=== PATIENT | male | born 1960 | race Caucasian/White ===

== ENCOUNTER 2016-10-24 10:48 | Emergency (ER) | payer SELFPAY ==
[~2016-10-24] VITALS: Ht 182.9 cm; Wt 100.0 kg
[2016-10-24] MEDS ORDERED: DEXAMETHASONE 4 MG/ML, 1ML IM ONE (11:30)
[2016-10-24] MEDS ORDERED: DIPHENHYDRAMINE 50 MG/ML, 1ML IM ONE (11:30)
[2016-10-24] MEDS ORDERED: FAMOTIDINE 20 MG TABLET PO ONE (11:30)
[2016-10-24] MEDS ORDERED: DIPHENHYDRAMINE 50 MG/ML, 1ML ONE (11:48)
[2016-10-24] MEDS ORDERED: DEXAMETHASONE 4 MG/ML, 5ML ONE (11:49)
[2016-10-24] MEDS ORDERED: FAMOTIDINE 20 MG TABLET ONE (11:49)
[2016-10-24] MEDS ORDERED: PLEASE ENTER HEIGHT AND WEIGHT MC SCH (12:00)
[2016-10-24] MEDS ORDERED: PLEASE ENTER ALLERGIES MC SCH ×2 (12:00)
[2016-10-24 16:38] VITALS: BP 138/92
== END 2016-10-24 16:40 | disposition home or self-care (01) ==
LOC: ED 16:20
DX: T78.40XA Allergy, unspecified, initial encounter (principal); L50.0 Allergic urticaria; T43.625A Adverse effect of amphetamines, initial encounter; Y92.89 Other specified places as the place of occurrence of the external cause
CPT/HCPCS: 93005; 96372; 99284; J1100; J1200

== ENCOUNTER 2017-09-28 11:10 | Emergency (ER) | payer MEDICAID ==
[~2017-09-28] VITALS: Ht 185.4 cm; Wt 115.9 kg
[2017-09-28] MEDS ORDERED: LISI-170 PO (11:56)
[2017-09-28] MEDS ORDERED: LIDOCAINE-MPF 1%, 5ML ONE (11:58)
[2017-09-28 12:39] LABS: BASOPHILS # (AUTO) 0.03 x10^3/uL (0-0.1); BASOPHILS % (AUTO) 0 % (0-1); EOSINOPHILS # (AUTO) 0.22 x10^3/uL (0-0.4); EOSINOPHILS % (AUTO) 2 % (1-7); LYMPHOCYTES # (AUTO) 1.16 x10^3/uL (1-3.4); LYMPHOCYTES % (AUTO) 10 % (22-44); MD NO; MEAN CORPUSCULAR HEMOGLOBIN 31.5 pg (27.5-34.5); MEAN CORPUSCULAR HGB CONC 34.4 g/dL (33.2-36.2); MEAN CORPUSCULAR VOLUME 91.7 fL (81-97); MEAN PLATELET VOLUME 7.8 fL (7.4-10.4); MONOCYTES # (AUTO) 1.37 x10^3/uL (0.2-0.8); MONOCYTES % (AUTO) 11 % (2-9); NEUTROPHILS # (AUTO) 9.21 x10^3/uL (1.8-6.8); NEUTROPHILS % (AUTO) 77 % (42-75); PLATELET COUNT 108 x10^3/uL (130-400); RED BLOOD COUNT 5.49 x10^6/uL (4.38-5.82); RED CELL DISTRIBUTION WIDTH 13.9 % (9.4-14.8)
[2017-09-28 12:49] LABS: ALBUMIN 3.3 g/dL (3.4-5.0); ANION GAP 7 mmol/L (5-15); CALCIUM 8.2 mg/dL (8.5-10.1); CHLORIDE 104 mmol/L (98-107); CREATININE 0.91 mg/dL (0.7-1.3)
[2017-09-28] MEDS ORDERED: CEFTRIAXONE 1,000 MG ONE (13:17)
[2017-09-28] MEDS ORDERED: LIDOCAINE-MPF 1%, 2ML ONE (13:17)
[2017-09-28 13:26] VITALS: BP 178/92
[2017-09-28] MEDS ORDERED: CEFTRIAXONE 1,000 MG IM ONE (13:30)
== END 2017-09-28 13:34 | disposition home or self-care (01) ==
LOC: MERGE 11:10 → ED 13:25
DX: L03.113 Cellulitis of right upper limb (principal); I10 Essential (primary) hypertension
CPT/HCPCS: 10060; 36415; 80048; 82040; 85025; 96372; 99284; J0696

== ENCOUNTER 2018-03-01 11:58 | Emergency (ER) | payer MEDICAID ==
[~2018-03-01 11:58] MED LIST: LISI-170 PO
[2018-03-01 12:01] VITALS: BP 159/101
[2018-03-01] MEDS ORDERED: L.E.T SOLUTION TP ONE ×2 (12:23→12:30)
[2018-03-01] MEDS ORDERED: SULFAMETH./TRIMETHOPRIM DS 800MG/160MG TABLET PO ONE (12:30)
[2018-03-01] MEDS ORDERED: CEFAZOLIN 1,000 MG IM ONE (12:30)
[2018-03-01] MEDS ORDERED: SULFAMETH./TRIMETHOPRIM DS 800MG/160MG TABLET ONE (12:33)
[2018-03-01] MEDS ORDERED: CEFAZOLIN 1,000 MG ONE (12:33)
== END 2018-03-01 13:22 | disposition home or self-care (01) ==
LOC: ED 12:30
DX: M79.661 Pain in right lower leg (principal); L03.115 Cellulitis of right lower limb; I10 Essential (primary) hypertension; Z76.0 Encounter for issue of repeat prescription; I73.9 Peripheral vascular disease, unspecified
CPT/HCPCS: 73590; 96372; 99284; J0690

== ENCOUNTER 2018-09-18 19:57 | Emergency (ER) | payer MEDICAID, OTHER ==
[~2018-09-18] VITALS: Ht 182.9 cm; Wt 109.7 kg
[2018-09-18 20:00] VITALS: BP 121/76
[2018-09-18 20:35] LABS: BASOPHILS # (AUTO) 0.03 x10^3/uL (0-0.1); BASOPHILS % (AUTO) 1 % (0-1); EOSINOPHILS # (AUTO) 0.21 x10^3/uL (0-0.4); EOSINOPHILS % (AUTO) 3 % (1-7); LYMPHOCYTES # (AUTO) 1.06 x10^3/uL (1-3.4); LYMPHOCYTES % (AUTO) 17 % (22-44); MD NO; MEAN CORPUSCULAR HEMOGLOBIN 31.9 pg (27.5-34.5); MEAN CORPUSCULAR HGB CONC 34.6 g/dL (33.2-36.2); MEAN CORPUSCULAR VOLUME 92.3 fL (81-97); MONOCYTES # (AUTO) 0.79 x10^3/uL (0.2-0.8); MONOCYTES % (AUTO) 12 % (2-9); NEUTROPHILS # (AUTO) 4.37 x10^3/uL (1.8-6.8); NEUTROPHILS % (AUTO) 68 % (42-75); PLATELET COUNT 143 x10^3/uL (130-400); RED BLOOD COUNT 5.18 x10^6/uL (4.38-5.82); RED CELL DISTRIBUTION WIDTH 13.8 % (9.4-14.8)
[2018-09-18 20:45] LABS: ALANINE AMINOTRANSFERASE 73 U/L (12-78); ALBUMIN 3.7 g/dL (3.4-5.0); ANION GAP 7 mmol/L (5-15); CALCIUM 8.3 mg/dL (8.5-10.1); CHLORIDE 109 mmol/L (98-107); CREATININE 0.96 mg/dL (0.7-1.3)
[2018-09-18 20:47] LABS: ALKALINE PHOSPHATASE 49 U/L (45-117); BILIRUBIN,TOTAL 1.3 mg/dL (0.2-1.0)
[2018-09-18] MEDS ORDERED: BACITRACIN ZINC OINT 500U/GM, 0.9 GM ONE (21:42)
== END 2018-09-18 21:42 | disposition home or self-care (01) ==
LOC: ED 21:36
DX: L03.116 Cellulitis of left lower limb (principal); L03.115 Cellulitis of right lower limb; I10 Essential (primary) hypertension; Z76.0 Encounter for issue of repeat prescription
CPT/HCPCS: 36415; 80053; 85025; 99284

== ENCOUNTER 2019-07-31 01:48 | Inpatient (IN) | payer MEDICAID ==
[~2019-07-31] VITALS: Ht 185.4 cm; Wt 118.9 kg
--- NOTE | 2019-07-31 02:24 | NUR ---
THIS IS A 59 YO MALE COMING IN FOR "I'VE BEEN HAVING CHILLS, FEVERS, I'VE BEEN LIGHTHEADED AND DIZZY, AND TROUBLE BREATHING" X 2 DAYS. PATIENT A&OX4, SPEAKING IN 3-4 WORD SENTENCES, SPO2 ON RA 88%, PLACED ON 4L NC UP TO 96%. EXPIRATORY WHEEZES AUSCULTATED THROUGHOUT, BILATERAL BASE CRACKLES AUSCULTATED. PATIENT STATES MEDICAL HX CONSISTS OF HTN UNCOMPLIANT WITH MEDICATIONS, AND CHF. PATIENT DENIES RECENT TRAVEL, DENIES BEING AROUND ANYONE WITH RECENT TRAVEL OUTSIDE [facility]. ALL MONITORING IN PLACE, SINUS ARRYTHMIA ON PARACHUTE RIGGER, VSS, NAD AT THIS TIME. CALL LIGHT IN REACH, FAMILY IN ROOM
--- NOTE | 2019-07-31 02:44 | NUR ---
TASK RN: IV ESTABLISHED. VS UPDATED. DR. JENSEN UPDATED ON NEW VS. NEW ORDERS RECEIVED. IVF STARTED PER DR. JENSEN AT . DR. JENSEN COLLECTED FLU SWAB AT THIS TIME. REPORTED TO PRIMARY RN DEITER.
[2019-07-31 02:48] LABS: ALBUMIN 3.4 g/dL (3.4-5.0); ANION GAP 5 mmol/L (5-15); CALCIUM 8.2 mg/dL (8.5-10.1); CHLORIDE 106 mmol/L (98-107); CREATININE 1.21 mg/dL (0.7-1.3)
[2019-07-31 03:03] LABS: BASOPHILS # (AUTO) 0.03 x10^3/uL (0-0.1); BASOPHILS % (AUTO) 0 % (0-1); EOSINOPHILS # (AUTO) 0.13 x10^3/uL (0-0.4); EOSINOPHILS % (AUTO) 2 % (1-7); LYMPHOCYTES # (AUTO) 0.37 x10^3/uL (1-3.4); LYMPHOCYTES % (AUTO) 6 % (22-44); MD SCAN; MEAN CORPUSCULAR HEMOGLOBIN 31.3 pg (27.5-34.5); MEAN CORPUSCULAR HGB CONC 32.9 g/dL (33.2-36.2); MEAN CORPUSCULAR VOLUME 95.3 fL (81-97); MEAN PLATELET VOLUME 8.4 fL (7.4-10.4); MONOCYTES # (AUTO) 0.87 x10^3/uL (0.2-0.8); MONOCYTES % (AUTO) 13 % (2-9); NEUTROPHILS % (AUTO) 79 % (42-75); PLATELET COUNT 101 x10^3/uL (130-400); RED BLOOD COUNT 5.43 x10^6/uL (4.38-5.82); RED CELL DISTRIBUTION WIDTH 13.9 % (9.4-14.8)
[2019-07-31 03:13] LABS: RAPID INFLUENZA A Negative (Negative); RAPID INFLUENZA B Negative (Negative)
--- NOTE | 2019-07-31 03:15 | NUR ---
PATIENT BACK FROM IMAGING
[2019-07-31] MEDS ORDERED: CEFTRIAXONE PMX 1GM/50ML 50 ML ONE (03:44)
[2019-07-31] MEDS ORDERED: SODIUM CHLORIDE 0.9% 1,000ML IVBOLUS ONE ×2 (04:00)
[2019-07-31] MEDS ORDERED: AZITHROMYCIN 500 MG in SODIUM CHLORIDE 0.9% 250 ML IV ONE (04:00)
[2019-07-31] MEDS ORDERED: CEFTRIAXONE PMX 1GM/50ML 50 ML IVPB ONE (04:00)
--- NOTE | 2019-07-31 04:01 | NUR ---
BLOOD CULTURES X2 DRAWN PRIOR TO ABX ADMIN. IV ABX STARTED, COOL WASHRAGS PLACED ON FOREHEAD AND BEHIND NECK TO HELP COOL PATIENT DOWN
[2019-07-31] MEDS ORDERED: SODIUM CHLORIDE 0.9% 1,000 ML IV ONE (04:06)
[2019-07-31] MEDS ORDERED: morphine SULFATE 10 MG/ML, 1ML IVPush PRN (04:30)
[2019-07-31] MEDS ORDERED: DOCUSATE 100 MG CAPSULE PO PRN (04:30)
[2019-07-31] MEDS ORDERED: PROMETHAZINE 25 MG/ML, 1ML IM PRN (04:30)
[2019-07-31] MEDS ORDERED: OXYcodone IR 5MG TABLET PO PRN (04:30)
[2019-07-31] MEDS ORDERED: ONDANSETRON 2MG/ML, 2ML IVPush PRN (04:30)
[2019-07-31] MEDS ORDERED: hydrALAzine 20 MG/ML, 1ML IVPush PRN (04:30)
[2019-07-31] MEDS ORDERED: POLYETHYLENE GLYCOL 17 GM PACKET PO PRN (04:30)
[2019-07-31] MEDS ORDERED: ONDANSETRON ODT 4 MG PO PRN (04:30)
[2019-07-31] MEDS ORDERED: BISACODYL 10 MG SUPP PR PRN (04:30)
[2019-07-31] MEDS ORDERED: FUROSEMIDE 20 MG/2 ML IV ONE (04:30)
--- NOTE | 2019-07-31 04:39 | NUR ---
SECOND IVF LITER AND IV ABX STARTED.
--- NOTE | 2019-07-31 04:45 | NUR ---
REPORT GIVEN TO MOHINDER DAWSON. PLAN OF CARE DISCUSSED. MOHINDER DAWSON AWARE IVF AND IV ABX INFUSING AT TIME OF TRANSFER
[2019-07-31 05:08] VITALS: BP 137/75
[2019-07-31] MEDS: HEPARIN 5,000 UNITS/ML, 1ML SQ SCH ×3 (05:12→20:32)
[2019-07-31 07:54] LABS: FREE T4 (FREE THYROXINE) 0.68 ng/dL (0.76-1.46); TROPONIN I 0.063 ng/mL (0.000-0.045)
[2019-07-31 07:57] VITALS: BP 136/78
[2019-07-31] MEDS: ACETAMINOPHEN 325 MG TABLET PO PRN ×2 (08:04→20:45)
[2019-07-31] MEDS ORDERED: MAGNESIUM SULFATE PMX 2GM/50ML 50 ML IV ONE ×2 (09:00→12:00)
[2019-07-31] MEDS ORDERED: LISINOPRIL 10 MG TABLET PO SCH (09:00)
[2019-07-31] MEDS: ALBUTEROL/IPRATROPIUM 2.5MG/0.5MG, 3 ML HHN SCH ×3 (09:30→21:30)
[2019-07-31 09:43] LABS: ALBUMIN 3.2 g/dL (3.4-5.0); BILIRUBIN, DIRECT 0.2 mg/dL (0.1-0.2)
[2019-07-31] MEDS: GUAIFENESIN ER 600 MG TABLET PO SCH ×2 (09:53→20:33)
[2019-07-31 09:54] LABS: BILIRUBIN,INDIRECT 1.6 mg/dL (0.0-2.0); BILIRUBIN,TOTAL 1.8 mg/dL (0.2-1.0); TOTAL PROTEIN 6.9 g/dL (6.4-8.2)
[2019-07-31 10:29] LABS: TROPONIN I 0.061 ng/mL (0.000-0.045)
[2019-07-31 10:30] LABS: FREE T4 (FREE THYROXINE) 0.74 ng/dL (0.76-1.46)
[2019-07-31] MEDS ORDERED: SODIUM PHOSPHATE 30 MMOL in SODIUM CHLORIDE 0.9% 500 ML IV ONE (12:00)
[2019-07-31 12:17] VITALS: BP 149/89
[2019-07-31 18:00] VITALS: BP 159/89
[2019-07-31 20:11] VITALS: BP 144/93
[2019-07-31] MEDS: LISINOPRIL 10 MG TABLET PO SCH (20:33)
[2019-08-01 01:52] VITALS: BP 138/87
[2019-08-01] MEDS ORDERED: CEFTRIAXONE PMX 2GM/50ML 50 ML IV SCH (04:00)
[2019-08-01] MEDS ORDERED: AZITHROMYCIN 500 MG in SODIUM CHLORIDE 0.9% 250 ML IV SCH (04:30)
[2019-08-01] MEDS: HEPARIN 5,000 UNITS/ML, 1ML SQ SCH ×2 (05:08→11:53)
[2019-08-01 07:45] VITALS: BP 145/89
[2019-08-01 08:10] LABS: ANION GAP 5 mmol/L (5-15); CALCIUM 8.1 mg/dL (8.5-10.1); CHLORIDE 106 mmol/L (98-107); CREATININE 0.96 mg/dL (0.7-1.3)
[2019-08-01 08:11] LABS: ALANINE AMINOTRANSFERASE 94 U/L (12-78)
[2019-08-01 08:14] LABS: ALKALINE PHOSPHATASE 38 U/L (45-117); BILIRUBIN,TOTAL 0.9 mg/dL (0.2-1.0); CHOL/HDL RATIO 2.9; CHOLESTEROL, TOTAL 58 mg/dL (140-239); HDL CHOL % 34 % (26-37); HDL CHOLESTEROL (DIRECT) 20 mg/dL (40-60); LDL CHOLESTEROL,CALCULATED 26 mg/dL (54-169); LDL/HDL RATIO 1.3 (0.5-3.0); TOTAL PROTEIN 6.9 g/dL (6.4-8.2); TRIGLYCERIDES 61 mg/dL (50-200); VLDL CHOLESTEROL 12 mg/dL (0-25)
[2019-08-01 08:52] LABS: MEAN CORPUSCULAR HEMOGLOBIN 31.8 pg (27.5-34.5); MEAN CORPUSCULAR HGB CONC 33.9 g/dL (33.2-36.2); MEAN CORPUSCULAR VOLUME 93.8 fL (81-97); PLATELET COUNT 80 x10^3/uL (130-400); RED BLOOD COUNT 5.58 x10^6/uL (4.38-5.82); RED CELL DISTRIBUTION WIDTH 13.9 % (9.4-14.8)
[2019-08-01 08:53] LABS: MD YES
[2019-08-01] MEDS: GUAIFENESIN ER 600 MG TABLET PO SCH (08:58)
[2019-08-01] MEDS: LISINOPRIL 10 MG TABLET PO SCH (08:59)
[2019-08-01 09:01] LABS: BAND#(MANUAL) 0.04 x10^3/uL; BANDS%(MANUAL) 1 % (0-7); BASOS#(MANUAL) 0.04 x10^3/uL (0-0.1); BASOS% (MANUAL) 1 % (0-1); EOS#(MANUAL) 0.11 x10^3/uL (0.0-0.4); EOS% (MANUAL) 3 % (1-7); LYMPH#(MANUAL) 0.94 x10^3/uL (1-3.4); LYMPHS% (MANUAL) 26 % (22-44); MONOS#(MANUAL) 0.54 x10^3/uL (0.3-2.7); MONOS% (MANUAL) 15 % (2-9); SEG#(MANUAL) 1.94 x10^3/uL (1.8-6.8); SEGS% (MANUAL) 54 % (42-75)
[2019-08-01 09:04] LABS: <RBC MORPHOLOGY> NORMAL
[2019-08-01 09:05] LABS: <PLATELET ESTIMATE> DECREASED; <PLT MORPHOLOGY> NORMAL PLT MORPH
[2019-08-01] MEDS: ALBUTEROL/IPRATROPIUM 2.5MG/0.5MG, 3 ML HHN SCH (09:30)
[2019-08-01] MEDS ORDERED: ALBUTEROL/IPRATROPIUM 2.5MG/0.5MG, 3 ML HHN PRN (10:30)
[2019-08-01] MEDS ORDERED: FUROSEMIDE 20 MG/2 ML IV SCH (12:00)
[2019-08-01] MEDS ORDERED: POTASSIUM CHLORIDE 20 MEQ TAB.ER.PRT PO SCH (12:00)
[2019-08-01] MEDS ORDERED: LISI-167 PO (13:48)
[2019-08-01] MEDS ORDERED: AMOX1TAB64 PO (13:48)
[2019-08-01] MEDS ORDERED: GUAI600T31 PO (13:48)
[2019-08-01] MEDS ORDERED: FLU VACC QS2019-20 36MOS UP/PF 0.5 ML IM-VACC ONE (14:00)
== END 2019-08-01 15:16 | disposition home or self-care (01) | DRG 871 ==
LOC: ED 04:07 → EDIP 04:22 → 5SO 04:53 → 4WST 08-01 12:25 → DCLOUNGE 08-01 15:08
PROVIDERS: ADMIT Student in an Organized Health Care Education/Training Program; ATTEND Hospitalist
DX: A41.9 Sepsis, unspecified organism (principal); I50.33 Acute on chronic diastolic (congestive) heart failure; J15.9 Unspecified bacterial pneumonia; J96.01 Acute respiratory failure with hypoxia; R65.21 Severe sepsis with septic shock; B19.20 Unspecified viral hepatitis C without hepatic coma; D69.6 Thrombocytopenia, unspecified; E83.39 Other disorders of phosphorus metabolism; E83.42 Hypomagnesemia; F15.10 Other stimulant abuse, uncomplicated; F17.200 Nicotine dependence, unspecified, uncomplicated; I11.0 Hypertensive heart disease with heart failure; K76.0 Fatty (change of) liver, not elsewhere classified; Z63.8 Other specified problems related to primary support group; Z91.14 Patient's other noncompliance with medication regimen
CPT/HCPCS: 36415; 84145; 87400; 96365; 96367; 99291; J7620; 71046; 76700; 80048; 80053; 80061; 80074; 80076; 82040; 83036; 83605; 83735; 83880; 84100; 84439; 84443; 84481; 84484; 85025; 87040; 87521; 90686; 93005; 93306; 94640; G0378; J0456; J0696; J1644; J1940; J3475; J7030; J7040; J7050

== ENCOUNTER 2020-02-21 21:20 | Emergency (ER) | payer MEDICAID ==
[~2020-02-21] VITALS: Ht 185.4 cm; Wt 112.3 kg
[~2020-02-21 21:20] MED LIST changes: +AMOX1TAB64 PO; +GUAI600T31 PO; +LISI-167 PO
[2020-02-21] MEDS ORDERED: ASPI-515 PO (21:29)
[2020-02-21] MEDS ORDERED: LASIX (21:29)
[2020-02-21] MEDS ORDERED: POTASSIUM (21:29)
[2020-02-21] MEDS ORDERED: PROPARACAINE OPHTH 0.5%, 15ML ONE (21:31)
[2020-02-21] MEDS ORDERED: FLUORESCEIN OPHTHALMIC 1 MG STRIP ONE (21:31)
--- NOTE | 2020-02-21 22:42 | NUR ---
ENGINEER AUT[employer]ATED EQUIPMENT: PT AMBULATORY TO ROOM WITH STEADY GAIT FROM LOBBY AT TIME. NAD NOTED.
--- NOTE | 2020-02-21 23:04 | NUR ---
PT TO ED WITH PERIORBITAL SWELLING, PT DENIES TRAUMA OR FOREIGN BODY SENSAITON. EYES HAVE YELLOW DRAINAGE, SCLERA REDDENED. CONJUNCTIVA APPEARS CLEAR. PT ONLY ABLE TO OPEN EYES A SMALL AMOUNT, DENIES VISION LOSS. PT MEDICATED PER MAR, IV PLACED. LABS SENT. PT DENIES FURTHER NEEDS AT THIS TIME. CALL LIGHT WITHIN REACH.
[2020-02-21] MEDS ORDERED: ONDANSETRON 2MG/ML, 2ML ONE (23:08)
[2020-02-21] MEDS ORDERED: MORPHINE SULFATE 4 MG/ML, 1ML ONE (23:09)
[2020-02-21] MEDS ORDERED: ONDANSETRON 2MG/ML, 2ML IVPush ONE (23:30)
[2020-02-21] MEDS ORDERED: morphine SULFATE 10 MG/ML, 1ML IVPush ONE (23:30)
[2020-02-21 23:49] LABS: ANION GAP 4 mmol/L (5-15); CALCIUM 9.6 mg/dL (8.5-10.1); CHLORIDE 108 mmol/L (98-107); CREATININE 1.17 mg/dL (0.7-1.3)
[2020-02-21 23:56] LABS: BASOPHILS # (AUTO) 0.06 x10^3/uL (0-0.1); BASOPHILS % (AUTO) 1 % (0-1); EOSINOPHILS # (AUTO) 0.14 x10^3/uL (0-0.4); EOSINOPHILS % (AUTO) 2 % (1-7); LYMPHOCYTES # (AUTO) 1.28 x10^3/uL (1-3.4); LYMPHOCYTES % (AUTO) 16 % (22-44); MD NO; MEAN CORPUSCULAR HEMOGLOBIN 31.4 pg (27.5-34.5); MEAN CORPUSCULAR HGB CONC 33.5 g/dL (33.2-36.2); MEAN CORPUSCULAR VOLUME 93.9 fL (81-97); MEAN PLATELET VOLUME 8.3 fL (7.4-10.4); MONOCYTES # (AUTO) 0.87 x10^3/uL (0.2-0.8); MONOCYTES % (AUTO) 11 % (2-9); NEUTROPHILS # (AUTO) 5.69 x10^3/uL (1.8-6.8); NEUTROPHILS % (AUTO) 71 % (42-75); PLATELET COUNT 132 x10^3/uL (130-400); RED BLOOD COUNT 5.91 x10^6/uL (4.38-5.82)
--- NOTE | 2020-02-22 00:23 | NUR ---
PT UPDATED ON POC, CALL LIGHT WITHIN REACH.
--- NOTE | 2020-02-22 00:29 | NUR ---
PT TO IMAGING AT THIS TIME.
[2020-02-22] MEDS ORDERED: OFLOXACIN OPHTH 0.3%, 5ML EACHEYE ONE (01:00)
[2020-02-22] MEDS ORDERED: CLINDAMYCIN PMX 900MG/50ML 50 ML ONE (01:18)
[2020-02-22] MEDS ORDERED: DIPHENHYDRAMINE 50 MG/ML, 1ML ONE (01:28)
[2020-02-22] MEDS ORDERED: DIPHENHYDRAMINE 50 MG/ML, 1ML IVPush ONE (01:30)
[2020-02-22] MEDS ORDERED: CLINDAMYCIN PMX 900MG/50ML 50 ML IV ONE (01:30)
[2020-02-22 01:33] VITALS: BP 142/91
--- NOTE | 2020-02-22 01:33 | NUR ---
PT MEDICATED PER MAR, UPDATED ON POC. CALL LIGHT WITHIN REACH.
[2020-02-22] MEDS ORDERED: OMNIPAQUE 350 MG/ML, 100ML BOTTLE ONE (02:01)
== END 2020-02-22 02:16 | disposition home or self-care (01) ==
LOC: ED 23:11
DX: H10.023 Other mucopurulent conjunctivitis, bilateral (principal); L03.213 Periorbital cellulitis; I10 Essential (primary) hypertension; I25.2 Old myocardial infarction; Z87.891 Personal history of nicotine dependence
CPT/HCPCS: 36415; 70481; 80048; 85025; 96365; 96375; 99285; J1200; J2270; J2405; Q9967

== ENCOUNTER 2020-02-28 23:01 | Emergency (ER) | payer MEDICAID ==
[~2020-02-28] VITALS: Ht 185.4 cm; Wt 113.0 kg
[~2020-02-28 23:01] MED LIST changes: +ASPI-515 PO; +LASIX; +POTASSIUM
[2020-02-28 23:08] VITALS: BP 118/85
[2020-02-28] MEDS ORDERED: FLUORESCEIN OPHTHALMIC 1 MG STRIP ONE (23:59)
[2020-02-28] MEDS ORDERED: PROPARACAINE OPHTH 0.5%, 15ML ONE (23:59)
--- NOTE | 2020-02-29 01:02 | NUR ---
TASK RN: DC EDUCATION PROVIDED, PT DEMONSTRATES UNDERSTANDING. PT AMBULATED STEADILY TO DC WITH RN
== END 2020-02-29 01:04 | disposition home or self-care (01) ==
LOC: ED 02-29 00:30
DX: H10.023 Other mucopurulent conjunctivitis, bilateral (principal); Z87.891 Personal history of nicotine dependence
CPT/HCPCS: 99283

== ENCOUNTER 2020-04-14 00:30 | Inpatient (IN) | payer MEDICAID ==
[~2020-04-14] VITALS: Ht 185.4 cm; Wt 120.4 kg
[2020-04-14] MEDS ORDERED: HYDROmorphone 1 MG/ML, 1ML INJ ONE ×2 (00:59→08:32)
[2020-04-14] MEDS ORDERED: AMPICILLIN/SULBACTAM 3 GM in SODIUM CHLORIDE 0.9% 100 ML IV ONE (01:00)
[2020-04-14] MEDS ORDERED: VANCOMYCIN PER PHARMACY MC ONE (01:00)
[2020-04-14] MEDS ORDERED: ONDANSETRON 2MG/ML, 2ML ONE (01:00)
[2020-04-14] MEDS ORDERED: VANCOMYCIN 2,500 MG in SODIUM CHLORIDE 0.9% 500 ML IV ONE (01:00)
[2020-04-14] MEDS ORDERED: SODIUM CHLORIDE FLUSH 10ML SYR IVF ONE (01:00)
[2020-04-14] MEDS ORDERED: ONDANSETRON 2MG/ML, 2ML IVPush ONE (01:00)
--- NOTE | 2020-04-14 01:00 | NUR ---
59 year old male to ED for testicular pain swelling, and discharge x 3 days. He states it started as a rash and got worse.
--- NOTE | 2020-04-14 01:22 | NUR ---
Ultrasound at bedside. Unable to obtain IV after 2 attempts. Awaiting attempt at either EJ or ultrasound. natient's o2 sat dropped to 88%. NC placed at 2L.
[2020-04-14] MEDS: HYDROmorphone 1 MG/ML, 1ML INJ IVPush PRN ×2 (02:03→08:36)
--- NOTE | 2020-04-14 02:04 | NUR ---
CT PENDING LAB.
[2020-04-14 02:23] LABS: BASOPHILS % (AUTO) 1 % (0-1); EOSINOPHILS % (AUTO) 3 % (1-7); LYMPHOCYTES % (AUTO) 15 % (22-44); MEAN CORPUSCULAR HEMOGLOBIN 31.5 pg (27.5-34.5); MEAN CORPUSCULAR HGB CONC 33.5 g/dL (33.2-36.2); MEAN PLATELET VOLUME 8.4 fL (7.4-10.4); MONOCYTES % (AUTO) 18 % (2-9); NEUTROPHILS % (AUTO) 63 % (42-75); PLATELET COUNT 115 x10^3/uL (130-400); RED BLOOD COUNT 6.17 x10^6/uL (4.38-5.82); RED CELL DISTRIBUTION WIDTH 14.2 % (9.4-14.8)
[2020-04-14 02:25] LABS: MD NO
[2020-04-14 02:32] LABS: ALANINE AMINOTRANSFERASE 61 U/L (12-78); ALBUMIN 3.6 g/dL (3.4-5.0); ANION GAP 3 mmol/L (5-15); CALCIUM 8.5 mg/dL (8.5-10.1); CHLORIDE 108 mmol/L (98-107); CREATININE 1.01 mg/dL (0.7-1.3)
[2020-04-14 02:34] LABS: ALKALINE PHOSPHATASE 48 U/L (45-117); TOTAL PROTEIN 7.8 g/dL (6.4-8.2)
[2020-04-14] MEDS ORDERED: NYSTATIN TOPICAL POWDER 15GM TP ONE (03:00)
[2020-04-14] MEDS ORDERED: OMNIPAQUE 350 MG/ML, 100ML BOTTLE ONE (03:02)
[2020-04-14] MEDS ORDERED: ZOLPIDEM 5MG TABLET PO PRN (04:30)
[2020-04-14] MEDS: ENOXAPARIN 40 MG/0.4 ML SQ SCH (04:30)
[2020-04-14] MEDS ORDERED: METHOCARBAMOL 500 MG TABLET PO PRN (04:30)
[2020-04-14] MEDS ORDERED: VANCOMYCIN PER PHARMACY MC PRN (04:30)
[2020-04-14] MEDS ORDERED: ACETAMINOPHEN 325 MG TABLET PO PRN (04:30)
[2020-04-14] MEDS ORDERED: morphine SULFATE 10 MG/ML, 1ML IVPush PRN (04:30)
[2020-04-14] MEDS ORDERED: DOCUSATE 100 MG CAPSULE PO PRN (04:30)
[2020-04-14] MEDS ORDERED: ONDANSETRON 2MG/ML, 2ML IVPush PRN (04:30)
[2020-04-14] MEDS ORDERED: ENALAPRILAT 1.25 MG/ML, 2ML IVPush PRN (04:30)
[2020-04-14] MEDS ORDERED: GUAIFENESIN/DM 200-20MG, 10ML UDC PO PRN (04:30)
[2020-04-14] MEDS: LACTATED RINGERS 1,000 ML IV SCH ×2 (04:30→14:45)
[2020-04-14] MEDS: FLUCONAZOLE 200 MG TABLET PO SCH (04:30)
[2020-04-14] MEDS ORDERED: FLUCONAZOLE 100 MG TABLET ONE (06:36)
[2020-04-14] MEDS ORDERED: ENOXAPARIN 40 MG/0.4 ML ONE (06:36)
[2020-04-14] MEDS ORDERED: OXYcodone/APAP 5/325MG TABLET ONE (06:36)
[2020-04-14] MEDS: OXYcodone/APAP 5/325MG TABLET PO PRN ×4 (06:40→11:09)
--- NOTE | 2020-04-14 06:50 | NUR ---
BEDSIDE REPORT FROM NICKO RN WITH ASSESSMENT PATIENT COMFORTABLY ASLEEP EVEN AND UN-LABORED BREATHING NOTED-VSS ON MONITOR
[2020-04-14] MEDS: AMPICILLIN/SULBACTAM 3 GM in SODIUM CHLORIDE 0.9% 100 ML IV SCH ×3 (07:39→19:23)
--- NOTE | 2020-04-14 07:42 | NUR ---
ORDERED 2L OF LR COMPLETE SECOND DOSE OF UNASYN ADMINISTERED PER EMAR BREAKFAST TRAY AND HOSPITAL BED ORDERED (THROUGHPUT RN REPORTS PATIENT TO BE AN ER HOLD NO INPATIENT ROOMS AVAILABLE)
[2020-04-14] MEDS ORDERED: LISINOPRIL 20 MG TABLET ONE (08:31)
[2020-04-14] MEDS ORDERED: ASPIRIN 81 MG TABLET EC ONE (08:31)
[2020-04-14] MEDS: ASPIRIN 81 MG TABLET EC PO SCH (08:37)
[2020-04-14] MEDS: LISINOPRIL 10 MG TABLET PO SCH (08:37)
--- NOTE | 2020-04-14 08:37 | NUR ---
REPORT TO CAT RN MEDICATED PER EMAR FOR SCROTAL PAIN AT 10/10 WITH 1MG OF DILUADID
--- NOTE | 2020-04-14 08:42 | NUR ---
INPATIENT RN CALLED TO NOTIFY THAT PATIENT JUST MEDICATED WITH NARCOTIC. ALSO MADE AWARE THAT PEPCID NOT IN OMNICELL (WILL NEED TO ADMIN)
[2020-04-14 08:50] VITALS: BP 125/79
[2020-04-14] MEDS ORDERED: PHARMACOKINETIC MONITORING MC PRN (09:00)
[2020-04-14] MEDS: FAMOTIDINE 20 MG TABLET PO SCH ×2 (09:00→21:04)
[2020-04-14] MEDS ORDERED: PHARMACOKINETIC CONSULTATION MC ONE (09:00)
[2020-04-14] MEDS ORDERED: FAMOTIDINE 40 MG TABLET ONE ×2 (10:39→20:26)
[2020-04-14 14:27] VITALS: BP 137/74
[2020-04-14 14:51] LABS: AMPHETAMINE SCREEN, URINE Positive (Negative); BARBITURATE SCREEN, URINE Negative (Negative); BENZODIAZEPINE SCREEN, URINE Negative (Negative); CANNABINOID SCREEN, URINE Negative (Negative); COCAINE SCREEN, URINE Negative (Negative); METHADONE SCREEN, URINE Negative (Negative); OPIATE SCREEN, URINE Positive (Negative)
[2020-04-14] MEDS ORDERED: FURO-93 PO (17:06)
[2020-04-14] MEDS ORDERED: POTA99TA24 PO (17:08)
[2020-04-14 19:45] VITALS: BP 142/82
[2020-04-14] MEDS ORDERED: HYDROCORTISONE CRM 2.5%, 20GM TP SCH (21:00)
[2020-04-14] MEDS: HYDROCORTISONE CRM 2.5%, 20GM TP SCH (21:04)
[2020-04-14] MEDS: VANCOMYCIN 2,200 MG in SODIUM CHLORIDE 0.9% 500 ML IV SCH (21:04)
[2020-04-15 00:35] VITALS: BP 152/99
[2020-04-15] MEDS: AMPICILLIN/SULBACTAM 3 GM in SODIUM CHLORIDE 0.9% 100 ML IV SCH ×4 (00:54→20:38)
[2020-04-15] MEDS: FLUCONAZOLE 200 MG TABLET PO SCH (04:34)
[2020-04-15] MEDS: ENOXAPARIN 40 MG/0.4 ML SQ SCH (04:34)
[2020-04-15 05:59] LABS: BASOPHILS % (AUTO) 1 % (0-1); EOSINOPHILS % (AUTO) 3 % (1-7); LYMPHOCYTES % (AUTO) 21 % (22-44); MEAN CORPUSCULAR HEMOGLOBIN 31.3 pg (27.5-34.5); MEAN CORPUSCULAR HGB CONC 33.1 g/dL (33.2-36.2); MEAN PLATELET VOLUME 8.5 fL (7.4-10.4); MONOCYTES % (AUTO) 18 % (2-9); NEUTROPHILS % (AUTO) 58 % (42-75); PLATELET COUNT 101 x10^3/uL (130-400); RED BLOOD COUNT 5.77 x10^6/uL (4.38-5.82); RED CELL DISTRIBUTION WIDTH 14.3 % (9.4-14.8)
[2020-04-15 06:05] LABS: CALCIUM 8.4 mg/dL (8.5-10.1); CHLORIDE 105 mmol/L (98-107)
[2020-04-15 06:09] LABS: ANION GAP 6 mmol/L (5-15)
[2020-04-15 06:30] LABS: MD NO
[2020-04-15 06:39] VITALS: BP 162/100
[2020-04-15] MEDS: ASPIRIN 81 MG TABLET EC PO SCH (08:52)
[2020-04-15] MEDS: LISINOPRIL 10 MG TABLET PO SCH (08:53)
[2020-04-15] MEDS: HYDROCORTISONE CRM 2.5%, 20GM TP SCH ×2 (08:54→20:42)
[2020-04-15 12:29] VITALS: BP 125/84
[2020-04-15] MEDS: VANCOMYCIN 2,200 MG in SODIUM CHLORIDE 0.9% 500 ML IV SCH (14:38)
[2020-04-15 20:30] VITALS: BP 97/61
[2020-04-16] MEDS: AMPICILLIN/SULBACTAM 3 GM in SODIUM CHLORIDE 0.9% 100 ML IV SCH ×2 (02:09→09:05)
[2020-04-16 02:10] VITALS: BP 124/80
[2020-04-16] MEDS: ENOXAPARIN 40 MG/0.4 ML SQ SCH (04:30)
[2020-04-16 05:35] LABS: CHLORIDE 104 mmol/L (98-107)
[2020-04-16 05:40] LABS: BASOPHILS % (AUTO) 1 % (0-1); EOSINOPHILS % (AUTO) 2 % (1-7); LYMPHOCYTES % (AUTO) 17 % (22-44); MEAN CORPUSCULAR HEMOGLOBIN 31.4 pg (27.5-34.5); MEAN CORPUSCULAR HGB CONC 33.6 g/dL (33.2-36.2); MEAN PLATELET VOLUME 9.2 fL (7.4-10.4); MONOCYTES % (AUTO) 17 % (2-9); NEUTROPHILS % (AUTO) 64 % (42-75); PLATELET COUNT 145 x10^3/uL (130-400); RED BLOOD COUNT 5.75 x10^6/uL (4.38-5.82)
[2020-04-16 05:44] LABS: ANION GAP 6 mmol/L (5-15); CALCIUM 8.9 mg/dL (8.5-10.1); CREATININE 0.87 mg/dL (0.7-1.3)
[2020-04-16 06:02] LABS: MD NO
[2020-04-16 07:58] VITALS: BP 125/80
[2020-04-16] MEDS: ASPIRIN 81 MG TABLET EC PO SCH (09:06)
[2020-04-16] MEDS: HYDROCORTISONE CRM 2.5%, 20GM TP SCH (09:06)
[2020-04-16] MEDS: LISINOPRIL 10 MG TABLET PO SCH (09:06)
[2020-04-16] MEDS: VANCOMYCIN 2,200 MG in SODIUM CHLORIDE 0.9% 500 ML IV SCH (10:30)
[2020-04-16] MEDS ORDERED: FUROSEMIDE 20 MG TABLET PO SCH (11:00)
== END 2020-04-16 14:20 | disposition left against medical advice (07) | DRG 727 ==
LOC: ED 03:06 → EDIP 03:45 → 5SO 08:43
PROVIDERS: ADMIT Internal Medicine; ATTEND Internal Medicine
DX: N49.2 Inflammatory disorders of scrotum (principal); J96.91 Respiratory failure, unspecified with hypoxia; I50.30 Unspecified diastolic (congestive) heart failure; L03.317 Cellulitis of buttock; L03.314 Cellulitis of groin; J98.11 Atelectasis; D75.1 Secondary polycythemia; E86.0 Dehydration; E87.8 Other disorders of electrolyte and fluid balance, not elsewhere classified; I11.0 Hypertensive heart disease with heart failure; B35.6 Tinea cruris; F15.10 Other stimulant abuse, uncomplicated; R16.1 Splenomegaly, not elsewhere classified; Z86.19 Personal history of other infectious and parasitic diseases; Z72.0 Tobacco use; Z53.29 Procedure and treatment not carried out because of patient's decision for other reasons
CPT/HCPCS: 36415; 71045; 72193; 76870; 80048; 80053; 80307; 83036; 83605; 84145; 85025; 87040; 96365; 96366; 96375; 99285; G0378; J0295; J1170; J1650; J2405; J3370; Q9967; J7040; J7120